=== PATIENT | male | born 1995 | race Hispanic/Latino ===

== ENCOUNTER → 2020-05-17 08:52 | Outpatient (CLI) | payer OTHER, SELFPAY ==
--- NOTE | 2020-05-17 08:54 | DI.RAD.S_ITS ---
PROCEDURE: XR ELBOW LT MIN 3V INDICATIONS: left elbow pain TECHNIQUE: 3 views of the elbow were acquired. COMPARISON: [facility], CR, XR WRIST LT MIN 3V, 05/17/2020, 8:57. FINDINGS: Bones: No fractures or dislocations. No suspicious bony lesions. Soft tissues: No elbow joint effusion. No suspicious soft tissue calcifications. IMPRESSION: No acute osseous abnormality. Dictated by: Bryson Young M.D. on 05/17/2020 at 9:46 Approved by: Bryson Young M.D. on 05/17/2020 at 9:57
--- NOTE | 2020-05-17 08:54 | DI.RAD.S_ITS ---
PROCEDURE: XR WRIST LT MIN 3V INDICATIONS: left wrist pain TECHNIQUE: 4 views of the wrist were acquired. COMPARISON: None. FINDINGS: Bones: No distal radius fracture seen. No dislocations. No suspicious bony lesions. Scaphoid view: Scaphoid waist fracture which appears chronic. There is minimal displacement. Soft tissues: No suspicious soft tissue calcifications. IMPRESSION: Scaphoid waist fracture which appears chronic. Correlate for point tenderness. MRI of the wrist may be helpful for further evaluation. Dictated by: Bryson Young M.D. on 05/17/2020 at 9:57 Approved by: Bryson Young M.D. on 05/17/2020 at 10:00
== END ==
PROVIDERS: PCP Registered Nurse; Referring Provider Registered Nurse; Visit Provider Registered Nurse
DX: M25.522 Pain in left elbow (principal); M25.532 Pain in left wrist; S62.002A Unspecified fracture of navicular [scaphoid] bone of left wrist, initial encounter for closed fracture; X58.XXXA Exposure to other specified factors, initial encounter
CPT/HCPCS: 73080; 73110

== ENCOUNTER 2020-05-23 16:45 | Emergency (ER) | payer OTHER, SELFPAY ==
[2020-05-23 17:11] VITALS: BP 136/85; PULSE 66; RESP 14; TEMP 36.7; O2SAT 99; BMI 35.4
--- NOTE | 2020-05-23 17:14 | DI.RAD.S_ITS ---
PROCEDURE: XR HAND LT MIN 3V INDICATIONS: drill bit into left index finger,to palm and middle digit TECHNIQUE: 3 views of the hand(s) acquired. COMPARISON: None. FINDINGS: Bones: No fractures or dislocations. Carpal bones are normally aligned. No suspicious bony lesions. Soft tissues: No radiopaque foreign body. No suspicious soft tissue calcifications. IMPRESSION: No fracture or radiopaque foreign body. Dictated by: José Miguel Snyder M.D. on 05/23/2020 at 16:31 Approved by: José Miguel Snyder M.D. on 05/23/2020 at 16:31
--- NOTE | 2020-05-23 22:51 | ED.WOUNDLAC ---
HPI - Wound/Laceration General Chief Complaint: Wound/Laceration Stated Complaint: drill bit left hand index, partial bit inside Time Seen by Provider: 05/23/20 21:43 Source: patient Mode of arrival: Ambulatory Limitations: no limitations History of Present Illness HPI narrative: Patient is a 24-year-old male who presents with left index finger injury. He states he was using a drill to get a strip screw out when the drill bit broke and it went through his finger. Between the PIP and MCP on the palmar side. He has no decreased range of motion no numbness or tingling. Related Data Home Medications Medication Instructions Recorded Confirmed No Known Home Medications 05/17/20 05/17/20 Previous Rx's Medication Instructions Recorded albuterol sulfate 90 mcg/actuation 2 puff INHALATION Q4-6H PRN #18 g 05/17/20 aerosol inhaler Allergies Allergy/AdvReac Type Severity Reaction Status Date / Time No Known Drug Allergies Allergy Verified 05/23/20 17:11 Review of Systems Review of Systems Narrative: GENERAL: Denies chills,fever HEENT: Denies throat pain RESPIRATORY: Denies dyspnea, cough, wheezing CARDIOVASCULAR: Denies chest pain, palpitations GASTROINTESTINAL: Denies nausea, vomiting MUSCULOSKELETAL: Denies extremity pain, injury SKIN: See HPI NEUROLOGIC: Denies weakness, dizziness, headache, numbness 8 point review of systems is negative except for those stated above and HPI Patient History Social History Smoking Status: Never smoker Smoking Status: Never smoker alcohol intake frequency: holidays/special occasions only Substance Use Type: marijuana Exam Initial Vital Signs Initial Vital Signs: Vital Signs Temperature 98.1 F 05/23/20 17:11 Pulse Rate 66 05/23/20 17:11 Respiratory Rate 14 05/23/20 17:11 Blood Pressure 136/85 05/23/20 17:11 Pulse Oximetry 99 05/23/20 17:11 GENERAL: Well-appearing, well-nourished and in no acute distress. CARDIOVASCULAR: peripheral pulses in tact, cap refill <2 sec RESPIRATORY: No respiratory distress, speaks in full sentences without difficulty EXTREMITIES: Normal range of motion, no clubbing or edema. Neurovascularly intact NEUROLOGICAL: Cranial nerves II through XII grossly intact. Normal gait and speech. Left index finger full flexion extension of finger sensation intact SKIN: Left index finger puncture wounds noted there are 2 on the fat pad of the finger between PIP and MCP. He has full flexion extension and sensation of his finger. No active bleeding or large laceration. Course Orders Ordered: Discontinued Medications Diphtheria/Tetanus/Acell Pertussis (Tet,Diph,Pertuss(Acell),Vac/Pf 0.5 Ml Syringe) 0.5 ml IM .ONCE ONE Stop: 05/23/20 22:56 Last Admin: 05/23/20 23:03 Dose: 0.5 ml Documented by: NAIMA Vital Signs Vital signs: Vital Signs - 8 hr 05/23/20 23:13 Pulse Rate 56 L Blood Pressure 131/87 Pulse Oximetry 97 MDM - Wound/Laceration Imaging Data Extremity x-ray #1: Radiologist's Impression: PROCEDURE: XR HAND LT MIN 3V INDICATIONS: drill bit into left index finger,to palm and middle digit TECHNIQUE: 3 views of the hand(s) acquired. COMPARISON: None. FINDINGS: Bones: No fractures or dislocations. Carpal bones are normally aligned. No suspicious bony lesions. Soft tissues: No radiopaque foreign body. No suspicious soft tissue calcifications. IMPRESSION: No fracture or radiopaque foreign body. Dictated by: José Miguel Snyder M.D. on 05/23/2020 at 16:31 Approved by: José Miguel Snyder M.D. on 05/23/2020 at 16:31 [facility] Narrative Medical decision making narrative: No need for suturing at this time. Wound appears closed and healing. He has full range of motion. X-rays negative. Discharge Plan Departure Patient Disposition: Home Clinical Impression: Laceration of left index finger Qualifiers: Encounter type: initial encounter Damage to nail status: without damage Foreign body presence: without foreign body Qualified Code(s): S61.211A - Laceration without foreign body of left index finger without damage to nail, initial encounter Instructions: DI for Puncture Wound, DI for Minor Laceration Activity Restrictions/Additional Instructions: *You have been diagnosed with left index finger laceration *What to do: At this time no need for sutures. Please keep finger clean and dry. With soap and water. May apply Neosporin 1-2 times daily to help with infection. *Continue to take medications as directed Ibuprofen 800 mg every 8 hours if needed [id number] pain Tylenol 650 mg every 4-6 hours needed for [id number] pain *Follow up with your primary care provider in 2-3 days *Return to ER if you should have redness pus swelling decreased range of motion or any new, worsening or concerning symptoms Prescriptions: No Action No Known Home Medications RF: 0 albuterol sulfate 90 mcg/actuation HFA aerosol inhaler 2 puff inhalation Q4-6H PRN (Reason: asthma) Qty: 18 RF: 2 Referrals: Kathy Walden ARNP [Primary Care Provider] -
[2020-05-23] MEDS: TET,DIPH,PERTUSS(ACELL),VAC/PF 0.5 ML SYRINGE IM (23:03)
[2020-05-23 23:13] VITALS: BP 131/87; PULSE 56; O2SAT 97
== END 2020-05-23 23:13 | disposition home or self-care (01) ==
PROVIDERS: Emergency Provider Emergency Medicine; PCP Registered Nurse
DX: S61.211A Laceration without foreign body of left index finger without damage to nail, initial encounter (principal); W29.8XXA Contact with other powered hand tools and household machinery, initial encounter; Z23 Encounter for immunization
CPT/HCPCS: 73130; 90471; 99281; 99283; 90715

== ENCOUNTER → 2020-09-18 11:59 | Outpatient (CLI) | payer OTHER, SELFPAY ==
--- NOTE | 2020-09-18 12:02 | DI.RAD.S_ITS ---
PROCEDURE: XR CHEST 2V INDICATIONS: sob; cough TECHNIQUE: 2 views of the chest were acquired. COMPARISON: None. FINDINGS: Surgical changes and devices: None. Lungs and pleura: Lungs are clear. No pleural effusions or pneumothorax. Mediastinum: Mediastinal contours are normal. Heart size is normal. Bones and chest wall: No suspicious bony abnormalities. Soft tissues appear unremarkable. IMPRESSION: Normal for age, source of current shortness of breath and cough symptoms is not seen. Dictated by: Balwinder Romero M.D. on 09/18/2020 at 13:39 Approved by: Balwinder Romero M.D. on 09/18/2020 at 13:40
[2020-09-18 12:34] LABS: Add Manual Diff / Slide Review NO; Basophils Absolute Auto 100 /uL (0-100); Basophils Percent Auto 0.9 % (0-2); Eosinophils Absolute Auto 1000 /uL (0-450); Eosinophils Percent Auto 12.4 % (2-4); Hematocrit 46.9 % (41-53); Hemoglobin 16.6 g/dL (13.5-17.5); Lymphocytes Absolute Auto 1800 /uL (1100-4500); Lymphocytes Percent Auto 23.2 % (25-40); Mean Corpuscular HGB Conc 35.4 % (30-36); Mean Corpuscular Hemoglobin 32.2 PG (26-34); Mean Corpuscular Volume 90.8 fL (80-100); Monocytes Absolute Auto 600 /uL (0-900); Monocytes Percent Auto 7.3 % (3-14); Neutrophils Absolute Auto 4300 /uL (1500-7000); Neutrophils Percent Auto 56.2 % (50-75); Platelet Count 272 X10^3/uL (150-400); Red Blood Cell Count 5.17 X10^6/uL (4.5-5.9); Red Cell Distribution Width 12.9 % (11.6-14.8); White Blood Cell Count 7.7 X10^3/uL (4.5-11.0)
[2020-09-18 12:51] LABS: Alanine Aminotransferase 71 IU/L (<50); Albumin 4.6 g/dL (3.5-5.0); Albumin Globulin Ratio 1.5 (1.0-2.8); Alkaline Phosphatase 99 U/L (38-126); Aspartate Aminotransferase 37 IU/L (17-59); BUN Creatinine Ratio 11.6 (6-22); Bilirubin Total 0.6 mg/dL (0.2-1.3); Blood Urea Nitrogen 13 mg/dL (9-20); Calcium 9.3 mg/dL (8.4-10.2); Carbon Dioxide 24 mmol/L (22-32); Chloride 106 mmol/L (98-107); Cholesterol 178 mg/dL (140-199); Estimated Glomerular Filt Rate > 60.0 mL/min (>60); Globulin 3.1 g/dL (1.7-4.1); Glucose 101 mg/dL (70-100); HDL Cholesterol 35 mg/dL (40-60); HEMOLYSIS < 15 (0-50); LDL Cholesterol Calculated 88 mg/dL (<100); Potassium 4.2 mmol/L (3.4-5.1); Sodium 139 mmol/L (137-145); Total Protein 7.7 g/dL (6.3-8.2); Triglycerides 277 mg/dL (35-150)
== END ==
PROVIDERS: PCP Registered Nurse; Referring Provider Registered Nurse; Visit Provider Registered Nurse
DX: R06.02 Shortness of breath (principal); R05 Cough; Z00.00 Encounter for general adult medical examination without abnormal findings; Z82.49 Family history of ischemic heart disease and other diseases of the circulatory system
CPT/HCPCS: 36415; 71046; 80053; 80061; 85025